=== PATIENT | male | born 1985 | race African-American/Black ===

== ENCOUNTER 2022-05-06 06:39 | Emergency (ER) | payer SELFPAY ==
[2022-05-06 07:42] LABS: Absolute Lymphocytes (CBC) 2.4 K/uL (0.7-4.9); Hematocrit 47.8 % (39.6-49.0); Lymphocytes % 41.6 % (15.3-44.8); MCV 83.8 fL (80-100); MPV 8.1 fL (7.6-11.3)
[2022-05-06] MEDS ORDERED: AMLODIPINE 10 MG TAB ONE (07:44)
[2022-05-06] MEDS ORDERED: NA CHLORIDE 0.9% 1,000 ML ONE (07:45)
[2022-05-06 07:46] LABS: Protime INR 1.05
[2022-05-06 08:05] LABS: Urine Blood 1+ (Negative); Urine Glucose Negative (Negative); Urine Protein Negative (Negative); Urine Specific Gravity >=1.030 (1.005-1.030); Urine pH 5.5 (5.0-7.0)
--- NOTE | 2022-05-06 08:12 | RAD REPORT ---
EXAM DESCRIPTION: RAD - Chest Single View - 05/06/2022 7:30 am CLINICAL HISTORY: COUGH COMPARISON: None TECHNIQUE: AP portable chest image was obtained 05/06/2022 7:30 am . FINDINGS: Lungs are clear. Heart and vasculature are normal. No measurable pleural effusion and no p neumothorax. No acute bony abnormality seen. No acute aortic findings suspected. IMPRESSION: No acute cardiopulmonary process.
--- NOTE | 2022-05-06 08:14 | RAD REPORT ---
EXAM DESCRIPTION: CT - Head Brain Wo Cont - 05/06/2022 7:23 am CLINICAL HISTORY: Headache, new or worsening, positional COMPARISON: No comparisons TECHNIQUE: Axial 5 mm thick images of the head were obtained without IV contrast. All CT scans are performed using dose optimization technique as appropriate and may include automated exposure control or mA/KV adjustment according to patient size. FINDINGS: No intracranial hemorrhage, mass, edema or shift of mid-line structures. No acute infarcti on changes seen. No abnormal extra-axial fluid collections. No ventriculomegaly or suspicious ventric ular finding. Physiologic calcifications are present. Mastoid air cells and visualized portions of the paranasal sinuses are clear. No acute bony findings. IMPRESSION: Negative non-contrast CT head examination.
[2022-05-06 08:20] LABS: Albumin 3.9 g/dL (3.4-5.0); Bilirubin Direct 0.1 mg/dL (0-0.2); Bilirubin Total 0.5 mg/dL (0.2-1.0); Magnesium 2.1 mg/dL (1.6-2.4); Potassium 4.1 mmol/L (3.5-5.1); Protein, Total 7.8 g/dL (6.4-8.2); Troponin High Sensitivity 29.1 pg/mL (<58.9)
[2022-05-06 08:53] LABS: Barbiturates NEGATIVE (NEGATIVE); Benzodiazepines NEGATIVE (NEGATIVE); Cocaine NEGATIVE (NEGATIVE); METHAMPHETAM NEGATIVE (NEGATIVE); Methadone NEGATIVE (NEGATIVE); Opiates NEGATIVE (NEGATIVE); Phencyclidine NEGATIVE (NEGATIVE); THC Cannibis NEGATIVE (NEGATIVE)
--- NOTE | 2022-05-06 09:05 | ER ---
Nurse's Notes [facility] Name: Mesfin Ibrahim Age: 36 yrs Sex: Male : 1985 Arrival Date: 05/06/2022 Time: 06:52 Bed 7 Private MD: Diagnosis: Essential (primary) hypertension;Headache Presentation: 05/06 07:02 Chief complaint: Patient states: "I have had a headache for a few weeks and this vc1 morning my blood pressure was 139/93 at 0600". Coronavirus screen: Vaccine status: Patient reports receiving the 2nd dose of the covid vaccine. Pfizer At this time, the client does not indicate any symptoms associated with coronavirus-19. Ebola Screen: No symptoms or risks identified at this time. Initial Sepsis Screen: Does the patient meet any 2 criteria? No. Patient's initial sepsis screen is negative. Does the patient have a suspected source of infection? No. Patient's initial sepsis screen is negative. Risk Assessment: Do you want to hurt yourself or someone else? Patient reports no desire to harm self or others. Onset of symptoms was May 06, 2022. 07:02 Method Of Arrival: Ambulatory vc1 07:02 Acuity: [place] 3 vc1 Triage Assessment: 08:11 Headache History: Denies prior headaches. General: Appears in no apparent distress. db comfortable, Behavior is calm, cooperative, appropriate for age. Pain: Complains of pain in right frontal area Pain currently is 9 out of 10 on a pain scale. Pain began gradually, couple of weeks Also complains of no other associated symptoms. Historical: - Allergies: 07:04 No Known Allergies; vc1 - Home Meds: 07:04 None [Active]; vc1 - PMHx: 07:04 Hypertensive disorder; Kidney stone; vc1 - PSHx: 07:04 Hernia repair; vc1 - Immunization history:: Client reports receiving the 2nd dose of the Covid vaccine. - Social history:: Smoking status: Patient denies any tobacco usage or history of. - Family history:: not pertinent. Screenin:05 Abuse screen: Denies threats or abuse. Nutritional screening: No deficits noted. vc1 Tuberculosis screening: No symptoms or risk factors identified. 07:20 [facility] ED Fall Risk Assessment (Adult) History of falling in the last 3 months, db including since admission No falls in past 3 months (0 pts) Confusion or Disorientation No (0 pts) Intoxicated or Sedated No (0 pts) Impaired Gait No (0 pts) Mobility Assist Device Used No (0 pt) Altered Elimination No (0 pt) Score/Fall Risk Level 0 - 2 = Low Risk Oriented to surroundings, Maintained a safe environment. Assessment: 07:20 Reassessment: Patient appears in no apparent distress at this time. Patient and/or db family updated on plan of care and expected duration. Pain level reassessed. Patient is alert, oriented x 3, equal unlabored respirations, skin warm/dry/pink. headache and undiagnosed high blood pressure. General: Appears in no apparent distress. comfortable, Behavior is calm, cooperative, appropriate for age. Pain: Complains of pain in head. Neuro: No deficits noted. Level of Consciousness is awake, alert, obeys commands, Oriented to person, place, time, situation. Cardiovascular: No deficits noted. Respiratory: No deficits noted. Airway is patent Respiratory effort is even, unlabored, Respiratory pattern is regular, symmetrical. GI: No deficits noted. No signs and/or symptoms were reported involving the gastrointestinal system. : No deficits noted. No signs and/or symptoms were reported regarding the genitourinary system. EENT: No deficits noted. No signs and/or symptoms were reported regarding the EENT system. Derm: No deficits noted. No signs and/or symptoms reported regarding the dermatologic system. 08:30 Reassessment: Patient appears in no apparent distress at this time. No changes from db previously documented assessment. Patient and/or family updated on plan of care and expected duration. Pain level reassessed. Patient is alert, oriented x 3, equal unlabored respirations, skin warm/dry/pink. 09:21 Reassessment: Patient appears in no apparent distress at this time. Patient and/or db family updated on plan of care and expected duration. Pain level reassessed. Patient is alert, oriented x 3, equal unlabored respirations, skin warm/dry/pink. Patient states feeling better. Patient states symptoms have improved. Pain: Complains of pain in head Pain currently is 6 out of 10 on a pain scale. Vital Signs: 07:02 BP 130 / 89; Pulse 83; Resp 18; Temp 98.6; Pulse Ox 99% ; Weight 99.79 kg; Height 6 ft. vc1 0 in. (182.88 cm); Pain 9/10; 07:45 BP 126 / 91; Pulse 75; Resp 18; Pulse Ox 97% on R/A; Pain 9/10; db 08:15 BP 121 / 84; Pulse 63; Resp 16; Pulse Ox 96% on R/A; db 09:15 BP 121 / 87; Pulse 71; Resp 16; Pulse Ox 98% ; Pain 6/10; db 09:45 BP 117 / 85; Pulse 74; Resp 16; Pulse Ox 97% on R/A; db 07:02 Body Mass Index 29.84 (99.79 kg, 182.88 cm) vc1 Vitals: 07:45 Cardiac Rhythm Assessment Regular Sinus rhythm. db [place] Coma Score: 07:36 Eye Response: spontaneous(4). Verbal Response: oriented(5). Motor Response: obeys pooja commands(6). Total: 15. ED Course: 06:52 Patient arrived in ED. ja2 07:04 Triage completed. vc1 07:04 Joe Pradhan MD is Attending Physician. pooja 07:12 Kathrin Mesa, FOREIGN is Primary Nurse. db 07:[address] db 07:20 Patient has correct armband on for positive identification. Bed in low position. Call db light in reach. Side rails up X 1. Client placed on continuous cardiac and pulse oximetry monitoring. NIBP monitoring applied. 07:20 No provider procedures requiring assistance completed. db 07:23 CT Head Brain wo Cont In Process Unspecified. EDMS 07:32 XRAY Chest (1 view) In Process Unspecified. EDMS 07:35 Inserted saline lock: 20 gauge in left antecubital area, using aseptic technique. Blood db collected. 09:04 Kendell Shipley MD is Referral Physician. pooja 09:52 IV discontinued, intact, bleeding controlled, No redness/swelling at site. db 09:53 Patient placed in an exam room. db Administered Medications: 07:45 Drug: NS 0.9% 1000 ml Route: IV; Rate: 125 ml/hr; Site: right antecubital; db 09:54 Follow up: Response: No adverse reaction; IV Status: Completed infusion; IV Intake: db 800ml 07:45 Drug: Norvasc (amlodipine) 10 mg Route: PO; db 08:08 Follow up: Response: No adverse reaction db 09:20 Drug: Ketorolac 30 mg Route: IVP; Site: right antecubital; db 09:53 Follow up: Response: No adverse reaction db 09:20 Drug: Zofran (Ondansetron) 4 mg Route: IVP; Site: right antecubital; db 09:53 Follow up: Response: No adverse reaction db Medication: 07:05 VIS not applicable for this client. vc1 Intake: 09:54 IV: 800ml; Total: 800ml. db Outcome: 09:04 Discharge ordered by MD. patton 09:50 Discharged to home ambulatory. db 09:50 Condition: stable 09:50 Discharge instructions given to patient, Instructed on discharge instructions, Demonstrated understanding of instructions, Prescriptions given X 1. 09:54 Patient left the ED. db Signatures: Dispatcher [employer] EDMS Joe Pradhan MD MD cha Alexander, Serena Parikh, RN RN vc1 Kathrin Mesa RN RN db Corrections: (The following items were deleted from the chart) 07:25 07:20 Reassessment: Patient appears in no apparent distress at this time. Patient db and/or family updated on plan of care and expected duration. Pain level reassessed. Patient is alert, oriented x 3, equal unlabored respirations, skin warm/dry/pink. db
--- NOTE | 2022-05-06 09:05 | EDPHYS ---
Physician Documentation [facility] Name: Mesfin Ibrahim Age: 36 yrs Sex: Male : 1985 Arrival Date: 05/06/2022 Time: 06:52 Bed 7 Private MD: NITIN Physician Joe Pradhan HPI: 05/06 07:33 This 36 yrs old Black Male presents to ER via Ambulatory with complaints of Headache, pooja High Blood Pressure. 07:33 The patient complains of pain to the forehead, left frontal area, left side of the back pooja of head, right frontal area and right side of the back of head. The patient describes the headache as aching. Onset: The symptoms/episode began/occurred 14 day(s) ago. Associated signs and symptoms: The patient has no apparent associated signs or symptoms. Severity of symptoms: At its worst the pain was mild, in the emergency department the pain is unchanged. Headache History: The patient has had previous headaches and this one is similar to previous episodes. The symptoms are alleviated by. The patient has experienced similar episodes in the past, several times. Historical: - Allergies: 07:04 No Known Allergies; vc1 - Home Meds: 07:04 None [Active]; vc1 - PMHx: 07:04 Hypertensive disorder; Kidney stone; vc1 - PSHx: 07:04 Hernia repair; vc1 - Immunization history:: Client reports receiving the 2nd dose of the Covid vaccine. - Social history:: Smoking status: Patient denies any tobacco usage or history of. - Family history:: not pertinent. ROS: 07:33 Constitutional: Negative for fever, chills, and weight loss, Eyes: Negative for injury, pooja pain, redness, and discharge, ENT: Negative for injury, pain, and discharge, Neck: Negative for injury, pain, and swelling, Cardiovascular: Negative for chest pain, palpitations, and edema, Respiratory: Negative for shortness of breath, cough, wheezing, and pleuritic chest pain, Abdomen/GI: Negative for abdominal pain, nausea, vomiting, diarrhea, and constipation, Back: Negative for injury and pain, : Negative for injury, bleeding, discharge, and swelling, MS/Extremity: Negative for injury and deformity, Skin: Negative for injury, rash, and discoloration, Psych: Negative for depression, anxiety, suicide ideation, homicidal ideation, and hallucinations, Allergy/Immunology: Negative for hives, rash, and allergies, Endocrine: Negative for neck swelling, polydipsia, polyuria, polyphagia, and marked weight changes, Hematologic/Lymphatic: Negative for swollen nodes, abnormal bleeding, and unusual bruising. 07:33 Neuro: Positive for headache. Exam: 07:33 Constitutional: This is a well developed, well nourished patient who is awake, alert, pooja and in no acute distress. Head/Face: Normocephalic, atraumatic. Eyes: Pupils equal round and reactive to light, extra-ocular motions intact. Lids and lashes normal. Conjunctiva and sclera are non-icteric and not injected. Cornea within normal limits. Periorbital areas with no swelling, redness, or edema. ENT: Nares patent. No nasal discharge, no septal abnormalities noted. Tympanic membranes are normal and external auditory canals are clear. Oropharynx with no redness, swelling, or masses, exudates, or evidence of obstruction, uvula midline. Mucous membranes moist. Neck: Trachea midline, no thyromegaly or masses palpated, and no cervical lymphadenopathy. Supple, full range of motion without nuchal rigidity, or vertebral point tenderness. No Meningismus. Chest/axilla: Normal chest wall appearance and motion. Nontender with no deformity. No lesions are appreciated. Cardiovascular: Regular rate and rhythm with a normal S1 and S2. No gallops, murmurs, or rubs. Normal PMI, no JVD. No pulse deficits. Respiratory: Lungs have equal breath sounds bilaterally, clear to auscultation and percussion. No rales, rhonchi or wheezes noted. No increased work of breathing, no retractions or nasal flaring. Abdomen/GI: Soft, non-tender, with normal bowel sounds. No distension or tympany. No guarding or rebound. No evidence of tenderness throughout. Back: No spinal tenderness. No costovertebral tenderness. Full range of motion. Male : Normal genitalia with no discharge or lesions. Skin: Warm, dry with normal turgor. Normal color with no rashes, no lesions, and no evidence of cellulitis. MS/ Extremity: Pulses equal, no cyanosis. Neurovascular intact. Full, normal range of motion. Neuro: Awake and alert, GCS 15, oriented to person, place, time, and situation. Cranial nerves II-XII grossly intact. Motor strength 5/5 in all extremities. Sensory grossly intact. Cerebellar exam normal. Normal gait. Psych: Awake, alert, with orientation to person, place and time. Behavior, mood, and affect are within normal limits. 07:33 ECG was reviewed by the Attending Physician. 09:14 Neck: External neck: is normal, no acute changes, C-spine: appears grossly normal, no pooja acute changes, Thyroid: appears normal, no acute changes, Trachea: is midline with no obvious abnormalities, no acute changes, ROM/movement: is normal, no acute changes, limited range of motion, is not appreciated, Meningeal signs: are not present, Kernig's sign is negative, Brudzinski's sign is negative, nuchal rigidity, is not appreciated, Lymph nodes: no appreciated lymphadenopathy. Vital Signs: 07:02 BP 130 / 89; Pulse 83; Resp 18; Temp 98.6; Pulse Ox 99% ; Weight 99.79 kg; Height 6 ft. vc1 0 in. (182.88 cm); Pain 9/10; 07:45 BP 126 / 91; Pulse 75; Resp 18; Pulse Ox 97% on R/A; Pain 9/10; db 08:15 BP 121 / 84; Pulse 63; Resp 16; Pulse Ox 96% on R/A; db 09:15 BP 121 / 87; Pulse 71; Resp 16; Pulse Ox 98% ; Pain 6/10; db 09:45 BP 117 / 85; Pulse 74; Resp 16; Pulse Ox 97% on R/A; db 07:02 Body Mass Index 29.84 (99.79 kg, 182.88 cm) vc1 [place] Coma Score: 07:36 Eye Response: spontaneous(4). Verbal Response: oriented(5). Motor Response: obeys pooja commands(6). Total: 15. MDM: 07:04 Patient medically screened. pooja 07:36 Differential diagnosis: hypertensive headache, hyponatremia, migraine, sinusitis, pooja tension headache. Data reviewed: vital signs, nurses notes, lab test result(s). Data interpreted: manager online: rate is 83 beats/min, rhythm is regular, Pulse oximetry: on room air is 99 %. Test interpretation: by ED physician or midlevel provider: ECG, plain radiologic studies. Counseling: I had a detailed discussion with the patient and/or guardian regarding: the historical points, exam findings, and any diagnostic results supporting the discharge/admit diagnosis, lab results, radiology results, the need for outpatient follow up. 07:47 ED course: no old med records, possible need cardio, neuro. pooja 05/06 07:11 Order name: Basic Metabolic Panel; Complete Time: 08:28 pooja 05/06 07:11 Order name: CBC with Diff; Complete Time: 08:28 pooja 05/06 07:11 Order name: LFT's; Complete Time: 08:28 pooja 05/06 07:11 Order name: Magnesium; Complete Time: 08:28 pooja 05/06 07:11 Order name: NT PRO-BNP; Complete Time: 08:28 pooja 05/06 07:11 Order name: PT-INR; Complete Time: 08:28 pooja 05/06 07:11 Order name: Troponin HS; Complete Time: 08:28 pooja 05/06 07:11 Order name: XRAY Chest (1 view); Complete Time: 08:28 pooja 05/06 07:11 Order name: Acetaminophen; Complete Time: 08:28 pooja 05/06 07:11 Order name: ETOH Level; Complete Time: 08:28 pooja 05/06 07:11 Order name: Ptt, Activated; Complete Time: 08:28 pooja 05/06 07:11 Order name: Salicylate; Complete Time: 08:28 pooja 05/06 07:11 Order name: Urine Drug Screen; Complete Time: 09:04 pooja 05/06 08:05 Order name: Urine Dipstick-Ancillary; Complete Time: 08:28 EDME 05/06 07:11 Order name: EKG; Complete Time: 07:12 pooja 05/06 07:11 Order name: Cardiac monitoring; Complete Time: 07:50 pooja 05/06 07:11 Order name: EKG - Nurse/Tech; Complete Time: 07:50 pooja 05/06 07:11 Order name: IV Saline Lock; Complete Time: 07:50 pooja 05/06 07:11 Order name: Labs collected and sent; Complete Time: 07:50 pooja 05/06 07:11 Order name: O2 Per Protocol; Complete Time: 07:50 pooja 05/06 07:11 Order name: O2 Sat Monitoring; Complete Time: 07:50 pooja 05/06 07:11 Order name: CT Head Brain wo Cont; Complete Time: 08:28 pooja 05/06 07:11 Order name: Urine Dipstick-Ancillary (obtain specimen); Complete Time: 08:10 pooja EC:33 Rate is 72 beats/min. Rhythm is regular. QRS [place] is Normal. QRS interval is normal. QT pooja interval is normal. No Q waves. T waves are Normal. No ST changes noted. Clinical impression: Normal ECG and No evidence of ischemia. Interpreted by me. Reviewed by me. Administered Medications: 07:45 Drug: NS 0.9% 1000 ml Route: IV; Rate: 125 ml/hr; Site: right antecubital; db 09:54 Follow up: Response: No adverse reaction; IV Status: Completed infusion; IV Intake: db 800ml 07:45 Drug: Norvasc (amlodipine) 10 mg Route: PO; db 08:08 Follow up: Response: No adverse reaction db 09:20 Drug: Ketorolac 30 mg Route: IVP; Site: right antecubital; db 09:53 Follow up: Response: No adverse reaction db 09:20 Drug: Zofran (Ondansetron) 4 mg Route: IVP; Site: right antecubital; db 09:53 Follow up: Response: No adverse reaction db Disposition Summary: 05/06/22 09:04 Discharge Ordered Location: Home pooja Problem: new pooja Symptoms: have improved pooja Condition: Stable pooja Diagnosis - Essential (primary) hypertension pooja - Headache pooja Followup: pooja - With: Private Physician - When: 2 - 3 days - Reason: Recheck today's complaints, Continuance of care, Re-evaluation by your physician Followup: pooja - With: - When: 2 - 3 days - Reason: Recheck today's complaints, Continuance of care, Re-evaluation by your physician Discharge Instructions: - Discharge Summary Sheet pooja - General Headache Without Cause pooja - Hypertension, Adult pooja - Hypertension, Adult, Ilhl-[id number] pooja - How to Take Your Blood Pressure, Ruzd-[id number] pooja - General Headache Without Cause, Dijy-pa-Lmov pooja - Managing Your Hypertension pooja Forms: - Medication Reconciliation Form pooja - Thank You Letter pooja - Antibiotic Education pooja - Prescription Opioid Use pooja - Work release form db Prescriptions: - Norvasc 5 mg Oral Tablet - take 1 tablet by ORAL route once daily; 20 tablet; Refills: 0, Product pooja Selection Permitted Signatures: Dispatcher [employer] Joe Tate MD MD cha Calcote, Vanessa RN RN vc1 Kathrin Mesa RN RN db Corrections: (The following items were deleted from the chart) :25 07:11 Suicide Screening ([place]) ordered. pooja em1
[2022-05-06] MEDS ORDERED: KETOROLAC 30 MG/ML INJ ONE (09:15)
[2022-05-06] MEDS ORDERED: ONDANSETRON 4 MG/2 ML VIAL ONE (09:15)
[2022-05-06 10:00] VITALS: TEMP 98.6
[2022-05-06 10:05] VITALS: BP 117/85; O2SAT 97
--- NOTE | 2022-05-07 14:26 | EKG ---
Test Date: 2022-05-06 Test Time: 07:29:44 [employer] Helper: LML MEASUREMENT RESULTS: Intervals: Rate: 72 AK: 146 QRSD: 94 QT: 416 QTc: 455 [place]: P: 67 AK: 146 QRS: 184 T: 123 INTERPRETIVE STATEMENTS: Normal sinus rhythm with sinus arrhythmia Right superior axis deviation ST & T wave abnormality, consider lateral ischemia Abnormal ECG No previous ECG available for comparison Electronically Signed On 05-07-22 14:22:59 FOUNTAIN HELPER by Constantino Tadeo
== END 2022-05-06 09:54 | disposition home or self-care (01) ==
LOC: ER 06:39
DX: R51.9 Headache, unspecified (principal); I10 Essential (primary) hypertension
CPT/HCPCS: 36415; 70450; 71045; 80048; 80076; 80307; 80320; 80329; 81003; 83735; 83880; 84484; 85025; 85610; 85730; 93005; 96361; 96374; 96375; 99284; J2405; J7030

== ENCOUNTER 2022-08-24 21:00 | Emergency (ER) | payer SELFPAY ==
--- OUTSIDE RECORDS SUMMARY | 2022-08-24 21:03 | XMS REPORT | Continuity of Care Document ---
:1985 Author Organization [facility] t Address [address] [place] [address] [address] [place] [address] Care Team Providers Name Role Phone Mervat Borges Primary Care Physician PHILIP Attending Clinician Unavailable MONTRELL GORMAN Attending Clinician Unavailable Montrell Jennings Attending Clinician SERENITY_SHENG_YAW Attending Clinician Unavailable PHILIP Admitting Clinician Unavailable SERENITY_SHENG_YAW Admitting Clinician Unavailable Payers Payer Name Policy Type Policy Number Effective Date Expiration Date [facility] [id number] Problems Condition Condition Condition Status Onset Resolution Last Treating Co mments Source Name Details Category Date Date Treatment Clinician Date Prediabete Prediabete Problem Active 0 [facility] [place] [facility] s 1-13 da 00:[facility]: [facility] No known No known Disease Unive rs active active ity of problems problems [facility] Allergies, Adverse Reactions, Alerts Allergy Allergy Status Severity Reaction(s) Onset Inactive Treating Comm ents Source Name Type Date Date Clinician NO KNOWN Drug Active Univers ALLERGIE Class ity of [facility] Social History Social Habit Start Date Stop Date Quantity Comments Source Exposure to 2022-05-02 2022-05-12 Not sure [facility] SARS-CoV-2 (event) 00:00:00 13:42:00 Medica l Branch Sex Ass[birth year] [facility] 00:00:00 00:00:00 Medical Branch Smoking Status Start Date Stop Date Source Tobacco smoking consumption [facility] Never Smoker [facility] Medications Ordered Filled Start Stop Current Ordering Indication Dosage Frequency Signature Comments Components Source Medication Medication Date Date Medication? Clinician (SIG) Name Name No known No No known Unive rs medications 1-15 medication it y of 14:03: s [address] Cipro 500 Cipro 500 No 1 Q12H Cipro 500 [place] mg tablet mg tablet mg tablet da Take 1 Take 1 Take 1 [facility] tablet tablet tablet al every 12 every 12 every 12 Hea lth hours by hours by hours by Out reac oral route. oral route. oral h route. Program Immunizations Ordered Immunization Filled Immunization Date Status Commen ts Source Name Name influenza, influenza, 2021-05-10 Completed [facility] injectable, injectable, 11:55:19 [facility] quadrivalent, quadrivalent, Outreach Program preservative free preservative free Tdap Tdap 2021-05-10 Completed [facility] 11:54:37 [facility] am Vital Signs Vital Name Observation Time Observation Value Comments Source Heart rate 2022-05-12 19:43:00 94 /min [facility] Body temperature 2022-05-12 19:43:00 36.89 Renee [facility] Respiratory rate 2022-05-12 19:43:00 18 /min [facility] Body height 2022-05-12 19:43:00 182.9 cm [facility] Body weight 2022-05-12 19:43:00 90.719 kg [facility] BMI 2022-05-12 19:43:00 27.12 kg/m2 [facility] Oxygen saturation in 2022-05-12 19:43:00 100 /min [facility] Arterial blood by [facility] Pulse oximetry Branch Systolic blood 2022-05-12 19:43:00 124 mm[Hg] Univer sity of pressure [facility] Diastolic blood 2022-05-12 19:43:00 81 mm[Hg] Unive rschacha of pressure [facility] BP Diastolic 2021-09-08 00:00:00 82 mm[Hg] [place] [facility] Height 2021-09-08 00:00:00 73 [in_i] [place] [facility] BMI (Body Mass 2021-09-08 00:00:00 26.7 kg/m2 [place]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) [facility] BP Systolic 2021-09-08 00:00:00 121 mm[Hg] [place] [facility] Body Weight 2021-09-08 00:00:00 3232 [oz_av] [place] [facility] BP Diastolic 2021-05-10 00:00:00 80 mm[Hg] [place] [facility] Height 2021-05-10 00:00:00 73 [in_i] [place] [facility] BMI (Body Mass 2021-05-10 00:00:00 26.3 kg/m2 [place]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) [facility] BP Systolic 2021-05-10 00:00:00 125 mm[Hg] [place] [facility] Body Weight 2021-05-10 00:00:00 3184 [oz_av] [place] [facility] Height 2020-02-15 00:00:00 73 [in_i] [place] [facility] BMI (Body Mass 2020-02-15 00:00:00 25.9 kg/m2 [place]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) [facility] Body Weight 2020-02-15 00:00:00 3136 [oz_av] [place] [facility] Procedures Procedure Date / Time Performed Performing Clinician [facility] e NOTICE OF PRIVACY 2022-05-12 19:37:59 Doctor Unassigned, No Univ [facility] Name Medical Branch CT, abdomen + pelvis, 2021-05-10 00:00:00 [place] [employer] [facility] w/o contrast Health Outreach Program Hernia Repair [facility] Plan of Care Planned Activity Planned Date Details Comments Source Diagnostic Test 2021-09-08 urinalysis, [facility] Pending 00:00:00 dipstick [code = Health Outr each urinalysis, Program dipstick] Encounters Start End Encounter Admission Attending Care Care Encounter Source Date/Time Date/Time Type Type Clinicians Facility Department ID 2022-07-10 2022-07-10 Outpatient VERNAAlbertMERVAT [facility] 105 [place] 00:00:00 00:00:00 _ANN [id number] [facility] 2022-05-12 2022-05-12 Emergency X SHERIF, [facility] ERT [id number] Univers 13:45:00 14:38:00 MONTRELL ity of [facility] 2022-05-12 2022-05-12 Emergency Sherif, [facility] [id number] Univers 13:45:00 14:38:00 Montrell CHUN [id number] i ty [facility] [id number] [facility] [id number] [place] [id number] Branch 2021-09-08 2021-09-08 Outpatient GUU_SHENG_Y [facility] 105 [id number]- [place] 03:26:00 03:26:00 [place] [id number] [facility] 2021-09-08 2021-09-08 Michelle [place] - [id number] M [place] 00:00:00 00:00:00 Mira Reid, Religion [facility] MANAGER OF EMPLOYEE RELATIONS: [address] [place] [address] Juancarlos , Ph. 2021-05-10 2021-05-10 Outpatient GUU_SHENG_Y [facility] 105 [id number] [place] 03:33:00 03:33:00 AW [facility] 2021-05-10 2021-05-10 Mervat Chapman [facility] [place] - [id number] [place] 00:00:00 00:00:00 Kody Borges da MANAGER OF EMPLOYEE RELATIONS: [address] [facility] [place] [id number] h , Ph. Program 2020-11-16 2020-11-16 Outpatient GUU_SHENG_Y [facility] 105 - [place] 02:36:00 02:36:00 [place] [id number] [facility] 2020-11-16 2020-11-16 Outpatient GUU_SHENG_Y [facility] 105 [place] 02:36:00 02:36:00 AW da [facility] 2020-02-15 2020-02-15 Outpatient GUU_SHENG_Y [facility] 105 [id number]- [place] 09:51:00 09:51:00 [place] [id number] [facility] 2020-02-15 2020[facility]02-[facility] [place] [id number] [place] 00:00:00 00:00:00 Kody Lazar da MANAGER OF EMPLOYEE RELATIONS: [address] [facility] [address], [facility] [id number] h , Ph. Program 2019-08-16 2019-08-16 Outpatient GUU_SHENG_Y [facility] 105 [place] 10:37:00 10:37:00 AW [id number] [facility] Results Test Description Test Time Test Comments Results Result Comments Source Urinalysis macro (dipstick) panel - Urine 2021-09-08 09:06:0 2 Test Item Value Reference Range Interpretation Comme nts Leukocytes (test code = Leukocytes) negative Nitrite (test code = Nitrite) negative Urobilinogen (test code = Urobilinogen) negative Protein (test code = Protein) positive pH (test code = pH) 6.0 Blood (test code = Blood) 2+ Specific [place] (test code = Specific [place]) 1.030 Ketone (test code = Ketone) negative Bilirubin (test code = Bilirubin) negative Glucose (test code = Glucose) negative Appearance (test code = Appearance) clear Color (test code = Color) light yellow [facility] - [id number] 10:06:45 Test Item Value Reference Range Interpretation Comments Leukocytes (test code = Leukocytes) Neg Nitrite (test code = Nitrite) Neg Urobilinogen (test code = Urobilinogen) Neg Protein (test code = Protein) Neg pH (test code = pH) 6.0 Blood (test code = Blood) Trace Specific [place] (test code = Specific 1.015 [place]) Ketone (test code = Ketone) Neg Bilirubin (test code = Bilirubin) Neg Glucose (test code = Glucose) Neg Appearance (test code = Appearance) clear Color (test code = Color) straw [facility]
[2022-08-24 22:14] LABS: Absolute Lymphocytes (CBC) 3.2 K/uL (0.7-4.9); Lymphocytes % 48.8 % (15.3-44.8); MPV 8.9 fL (7.6-11.3)
[2022-08-24] MEDS ORDERED: ONDANSETRON 4 MG/2 ML VIAL ONE (22:16)
[2022-08-24] MEDS ORDERED: HYDROMORPHONE HCL 1 MG/ML INJ ONE (22:16)
[2022-08-24] MEDS ORDERED: NA CHLORIDE 0.9% 1,000 ML ONE (22:16)
[2022-08-24 22:36] LABS: Specific Gravity 1.023 (1.005-1.030); Urine Bacteria None Seen /HPF (<20); Urine Bilirubin NEGATIVE (Negative); Urine Blood 1+ (Negative); Urine Clarity Clear (Clear); Urine Color Light-Yellow (Yellow); Urine Glucose NEGATIVE (Negative); Urine Protein NEGATIVE (Negative); Urine Urobilinogen 1+ (Normal); Urine pH 5.5 (5.0-7.0)
[2022-08-24 22:37] LABS: Albumin 3.9 g/dL (3.4-5.0); Bilirubin Total 0.5 mg/dL (0.2-1.0); Protein, Total 7.8 g/dL (6.4-8.2)
[2022-08-24 22:38] LABS: Potassium 3.9 mEq/L (3.5-5.1)
--- NOTE | 2022-08-24 22:41 | RAD REPORT ---
EXAM DESCRIPTION: CT - Stone Protocol - 08/24/2022 10:24 pm CLINICAL HISTORY: FLANK PAIN COMPARISON: Head C Spine Cap Wo Con dated 05/10/2022 TECHNIQUE: Thin cut axial CT imaging of the abdomen and pelvis was performed without IV contrast. Mu ltiplanar reformats were generated and reviewed. All CT scans are performed using dose optimization technique as appropriate and may include automated exposure control or mA/KV adjustment according to patient size. FINDINGS: No suspicious findings in the lung bases. 4 millimeter peripheral left lower lobe nodule, axial image 12, likely benign given size. The liver, spleen, and pancreas show no suspicious findings. Gallbladder and biliary tree are also wi thout suspicious finding. Symmetric renal contour, without suspicious parenchymal findings within limits of noncontrast techniq ue. No evidence of radiopaque calculi or hydroureteronephrosis. No dilated bowel loops or bowel wall thickening. No free air, free fluid or inflammatory stranding. N o hernia, mass or bulky lymphadenopathy. The urinary bladder is without significant finding. No suspicious bony findings. IMPRESSION: No acute intra-abdominal process.
--- NOTE | 2022-08-24 23:18 | ER ---
Nurse's Notes [facility] Name: Mesfin Ibrahim Age: 36 yrs Sex: Male : 1985 Arrival Date: 08/24/2022 Time: 21:00 Bed 9 Private MD: Diagnosis: Dorsalgia, unspecified Presentation: 08/24 21:18 Chief complaint: Patient states: left flank pain x 2 days denies diff urinating reports kl history of kidney stones. Coronavirus screen: Vaccine status: Patient reports receiving the 2nd dose of the covid vaccine. Ebola Screen: Patient negative for fever greater than or equal to 101.5 degrees Fahrenheit, and additional compatible Ebola Virus Disease symptoms. Initial Sepsis Screen: Does the patient meet any 2 criteria? No. Patient's initial sepsis screen is negative. Does the patient have a suspected source of infection? No. Patient's initial sepsis screen is negative. Risk Assessment: Do you want to hurt yourself or someone else? Patient reports no desire to harm self or others. 21:18 Method Of Arrival: Ambulatory kl 21:18 Acuity: [place] 3 kl Triage Assessment: 21:20 General: Appears uncomfortable, Behavior is calm, cooperative. Pain: Complains of pain kl in left flank. Historical: - Allergies: 21:19 No Known Allergies; kl - PMHx: 21:19 Hypertensive disorder; Kidney stone; kl - PSHx: 21:19 hernia repair; hernia repair; kl - Immunization history:: Adult Immunizations up to date. - Social history:: Smoking status: Patient denies any tobacco usage or history of. Screenin:50 [facility] ED Fall Risk Assessment (Adult) History of falling in the last 3 months, ll3 including since admission No falls in past 3 months (0 pts) Confusion or Disorientation No (0 pts) Intoxicated or Sedated No (0 pts) Impaired Gait No (0 pts) Mobility Assist Device Used No (0 pt) Altered Elimination No (0 pt) Score/Fall Risk Level 0 - 2 = Low Risk Oriented to surroundings, Maintained a safe environment, Educated pt \T\ family on fall prevention, incl call for assistance when getting out of bed. Abuse screen: Denies threats or abuse. Denies injuries from another. Nutritional screening: No deficits noted. Tuberculosis screening: No symptoms or risk factors identified. Vital Signs: 21:18 BP 118 / 78; Pulse 70; Resp 18; Temp 98.4(O); Pulse Ox 97% on R/A; Weight 95.25 kg (R); kl Height 6 ft. 0 in. ; Pain 10/10; 23:51 BP 123 / 78; Pulse 72; Resp 16; Pulse Ox 99% on R/A; ll3 21:18 Body Mass Index 28.48 (95.25 kg, 182.88 cm) kl 21:18 Pain Scale: Adult ED Course: 21:02 Patient arrived in ED. mr 21:19 Triage completed. kl 21:39 Joe Blankenship PA is PHCP. cp 21:39 Lino Powell MD is Attending Physician. cp 22:25 CT Stone Protocol In Process Unspecified. EDMS 22:55 Inserted saline lock: 22 gauge in left wrist, using aseptic technique. Blood collected. oe 23:50 No provider procedures requiring assistance completed. IV discontinued, intact, ll3 bleeding controlled, No redness/swelling at site. Pressure dressing applied. 23:50 Patient has correct armband on for positive identification. Bed in low position. Call ll3 light in reach. Side rails up X 1. Adult w/ patient. 23:51 Arm band placed on Patient placed in an exam room, on a stretcher, on pulse oximetry. ll3 Administered Medications: 22:16 Drug: NS 0.9% IV 1000 ml Route: IV; Rate: 1000 ml/hr; Site: left wrist; ll3 23:48 Follow up: Response: No adverse reaction; IV Status: Completed infusion; IV Intake: ll3 1000ml 22:16 Drug: HYDROmorphone IVP 1 mg Route: IVP; Site: left wrist; ll3 23:49 Follow up: Response: No adverse reaction; Pain is decreased ll3 22:16 Drug: Ondansetron IVP 4 mg Route: IVP; Site: left wrist; ll3 23:49 Follow up: Response: No adverse reaction ll3 23:47 Drug: Decadron - Dexamethasone IVP 10 mg Route: IVP; Site: right wrist; ll3 23:49 Follow up: Response: Medication administered at discharge. ll3 23:47 Drug: Diazepam IVP 2 mg Route: IVP; Site: right wrist; ll3 23:50 Follow up: Response: Medication administered at discharge. ll3 23:48 Drug: Lidoderm Topical Patch 5 % (700 mg/patch) 1 patches Route: Topical; Site: ll3 affected area; 23:49 Follow up: Response: No adverse reaction ll3 23:48 Drug: Ketorolac IVP 15 mg Route: IVP; Site: right wrist; ll3 23:49 Follow up: Response: Medication administered at discharge. ll3 Medication: 23:51 VIS not applicable for this client. ll3 Intake: 23:48 IV: 1000ml; Total: 1000ml. ll3 Outcome: 23:18 Discharge ordered by MD. cp 23:50 Discharged to home ambulatory, with significant other. ll3 23:50 Condition: stable 23:50 Discharge instructions given to patient, significant other, Instructed on discharge instructions, follow up and referral plans. medication usage, Demonstrated understanding of instructions, follow-up care, medications, Prescriptions given X 4. 23:51 Patient left the ED. ll3 Signatures: Dispatcher [employer] EDMS Rupa Ramirez, RN Mervat Faustin Corey, PA PA cp Espinosa, Orlando oe Loubet, Lynsea, RN RN ll3
--- NOTE | 2022-08-24 23:18 | EDPHYS ---
Physician Documentation [facility] Name: Mesfin Ibrahim Age: 36 yrs Sex: Male : 1985 Arrival Date: 08/24/2022 Time: 21:00 Bed 9 Private MD: ED Physician Lino Powell HPI: 08/24 21:45 This 36 yrs old Black Male presents to ER via Ambulatory with complaints of Low Back cp Pain, Pelvic Pain. 21:45 The patient presents with pain that is acute, with no known mechanism of injury. The cp symptoms are located in the left mid back and left flank. The pain does not radiate. Onset: The symptoms/episode began/occurred yesterday, and became worse today. 21:45 The problem was sustained possible kidney stone. cp 21:45 Associated signs and symptoms: Pertinent positives: nausea, Pertinent negatives: cp abdominal pain, chest pain, constipation, dysuria, fever, incontinence, numbness, vomiting, weakness. Severity of symptoms: in the emergency department the symptoms are unchanged, despite home interventions. The patient has experienced similar episodes in the past, a few times, today's symptoms are similar, to when the patient was apparently diagnosed with kidney stone. Historical: - Allergies: 21:19 No Known Allergies; kl - PMHx: 21:19 Hypertensive disorder; Kidney stone; kl - PSHx: 21:19 hernia repair; hernia repair; kl - Immunization history:: Adult Immunizations up to date. - Social history:: Smoking status: Patient denies any tobacco usage or history of. ROS: 21:50 Constitutional: Negative for body aches, chills, fever, poor PO intake. cp 21:50 Eyes: Negative for injury, pain, redness, and discharge. cp 21:50 ENT: Negative for drainage from ear(s), ear pain, sore throat, difficulty swallowing, difficulty handling secretions. 21:50 Neck: Negative for pain with movement, pain at rest, stiffness. 21:50 Cardiovascular: Negative for chest pain. 21:50 Respiratory: Negative for cough, shortness of breath, wheezing. 21:50 Abdomen/GI: Negative for abdominal pain, vomiting, diarrhea, constipation, anorexia. 21:50 Back: Positive for pain at rest, pain with movement, flank pain, on the left, of the left mid back, Negative for injury or acute deformity. 21:50 MS/extremity: Negative for pain, paresthesias. 21:50 Skin: Negative for rash. 21:50 Neuro: Negative for altered mental status, dizziness, headache, numbness, weakness. 21:50 All other systems are negative. Exam: 21:55 Constitutional: The patient appears in no acute distress, alert, awake, cp non-diaphoretic, non-toxic, well developed, well nourished, uncomfortable. 21:55 Head/Face: Normocephalic, atraumatic. cp 21:55 Eyes: Periorbital structures: appear normal, Conjunctiva: normal, no exudate, no injection, Sclera: no appreciated abnormality, Lids and lashes: appear normal, bilaterally. 21:55 ENT: External ear(s): are unremarkable, Nose: is normal, Mouth: Lips: moist, Oral mucosa: pink and intact, moist, Posterior pharynx: is normal, airway is patent, no erythema, no exudate. 21:55 Neck: ROM/movement: is normal, is supple, without pain, no range of motions limitations. 21:55 Chest/axilla: Inspection: normal. 21:55 Cardiovascular: Rate: normal, Rhythm: regular, Edema: is not appreciated, JVD: is not appreciated. 21:55 Respiratory: the patient does not display signs of respiratory distress, Respirations: normal, no use of accessory muscles, no retractions, labored breathing, is not present, Breath sounds: are clear throughout, no decreased breath sounds, no stridor, no wheezing. 21:55 Abdomen/GI: Inspection: abdomen appears normal, Bowel sounds: active, all quadrants, Palpation: abdomen is soft and non-tender, in all quadrants. 21:55 Back: pain, that is moderate, of the left mid back, ROM is painful, with all movement, Straight leg raises: of both lower extremities does not illicit pain. 21:55 Skin: no rash present. 21:55 Neuro: Orientation: to person, place \T\ time. Mentation: is normal, Motor: moves all fours, strength is normal, Sensation: is normal. Vital Signs: 21:18 BP 118 / 78; Pulse 70; Resp 18; Temp 98.4(O); Pulse Ox 97% on R/A; Weight 95.25 kg (R); kl Height 6 ft. 0 in. ; Pain 10/10; 23:51 BP 123 / 78; Pulse 72; Resp 16; Pulse Ox 99% on R/A; ll3 21:18 Body Mass Index 28.48 (95.25 kg, 182.88 cm) kl 21:18 Pain Scale: Adult kl MDM: 21:40 Patient medically screened. cp 22:00 Differential diagnosis: sciatica, Herniated disc UTI, kidney stone, cholelithiasis, cp cholecystitis, pneumonia. 23:17 Data reviewed: vital signs, nurses notes, lab test result(s), radiologic studies, CT cp scan. 23:17 Consideration of Admission/Observation Escalation of care including cp admission/observation considered. I considered the following discharge prescriptions or medication management in the emergency department Medications were administered in the Emergency Department. See MAR. Care significantly affected by the following chronic conditions: Hypertension. Counseling: I had a detailed discussion with the patient and/or guardian regarding: the historical points, exam findings, and any diagnostic results supporting the discharge/admit diagnosis, lab results, radiology results, the need for outpatient follow up, a family practitioner, to return to the emergency department if symptoms worsen or persist or if there are any questions or concerns that arise at home. Response to treatment: the patient's symptoms have markedly improved after treatment, and as a result, I will discharge patient. 08/24 21:39 Order name: CBC with Diff; Complete Time: 22:42 08/24 22:42 Interpretation: Normal except: CHARU% 33.0; LYM% 48.8; EOSINOPHIL % 9.2; EOSA 0.6. 08/24 21:39 Order name: CMP; Complete Time: 22:42 08/24 22:43 Interpretation: Normal except: CL 109; GLUC 111; CA 8.2; GLOB 3.9; A/G 1.0. 08/24 21:39 Order name: Lipase; Complete Time: 22:42 08/24 21:39 Order name: Urinalysis w/ reflexes; Complete Time: 22:42 08/24 22:43 Interpretation: UBLD 1+; UUROB 1+; URBC 11-20; Reviewed. 08/24 21:57 Order name: CT Stone Protocol; Complete Time: 22:42 08/24 22:44 Interpretation: Report reviewed. 08/24 21:39 Order name: IV Saline Lock; Complete Time: 22:16 cp 08/24 21:39 Order name: Labs collected and sent; Complete Time: 22:03 cp 08/24 23:03 Order name: PO challenge; Complete Time: 23:17 cp Administered Medications: 22:16 Drug: NS 0.9% IV 1000 ml Route: IV; Rate: 1000 ml/hr; Site: left wrist; ll3 23:48 Follow up: Response: No adverse reaction; IV Status: Completed infusion; IV Intake: ll3 1000ml 22:16 Drug: HYDROmorphone IVP 1 mg Route: IVP; Site: left wrist; ll3 23:49 Follow up: Response: No adverse reaction; Pain is decreased ll3 22:16 Drug: Ondansetron IVP 4 mg Route: IVP; Site: left wrist; ll3 23:49 Follow up: Response: No adverse reaction ll3 23:47 Drug: Decadron - Dexamethasone IVP 10 mg Route: IVP; Site: right wrist; ll3 23:49 Follow up: Response: Medication administered at discharge. ll3 23:47 Drug: Diazepam IVP 2 mg Route: IVP; Site: right wrist; ll3 23:50 Follow up: Response: Medication administered at discharge. ll3 23:48 Drug: Lidoderm Topical Patch 5 % (700 mg/patch) 1 patches Route: Topical; Site: ll3 affected area; 23:49 Follow up: Response: No adverse reaction ll3 23:48 Drug: Ketorolac IVP 15 mg Route: IVP; Site: right wrist; ll3 23:49 Follow up: Response: Medication administered at discharge. ll3 Disposition Summary: 08/24/22 23:18 Discharge Ordered Location: Home cp Problem: new cp Symptoms: have improved cp Condition: Stable cp Diagnosis - Dorsalgia, unspecified cp Followup: cp - With: Private Physician - When: 2 - 3 days - Reason: Recheck today's complaints Discharge Instructions: - Discharge Summary Sheet cp - Acute Back Pain, Adult cp - Musculoskeletal Pain cp Forms: - Medication Reconciliation Form cp - Thank You Letter cp - Antibiotic Education cp - Prescription Opioid Use cp Prescriptions: - Lidoderm 5 % Topical adhesive patch, medicated - apply 1 patch by TOPICAL route daily As needed leave on most painful area for cp up to 12 hrs; 10 patch; Refills: 0, Product Selection Permitted - Cyclobenzaprine 10 mg Oral Tablet - take 1 tablet by ORAL route every 8 hours As needed; 20 tablet; Refills: 0, cp Product Selection Permitted - Diclofenac Sodium 75 mg Oral Tablet Sustained Release - take 1 tablet by ORAL route 2 times per day; 30 tablet; Refills: 0, Product cp Selection Permitted - Medrol (Xavi) 4 mg Oral Tablets, Dose Pack - take 1 tablet by ORAL route as directed - follow package instructions; 1 cp packet; Refills: 0, Product Selection Permitted Addendum: 08/26/2022 06:59 Co-signature as Attending Physician, Lino Powell MD I agree with the assessment s p4 and plan of care. I reviewed the patient's care provided by the Advanced Practice Provider and agree with the diagnosis and treatment plan. Signatures: Dispatcher [employer] Rupa Black RN RN Joe Tuttle PA PA cp Loubet, Lynsea, RN RN ll3 Lino Powell MD MD sp4
[2022-08-24] MEDS ORDERED: DIAZEPAM 10 MG/2 ML INJ SYRINGE ONE (23:37)
[2022-08-24] MEDS ORDERED: dexAMETHasone 10 MG/ML VIAL ONE (23:37)
[2022-08-24] MEDS ORDERED: LIDOCAINE 4% PATCH ONE (23:38)
[2022-08-24] MEDS ORDERED: KETOROLAC 30 MG/ML INJ ONE (23:38)
[2022-08-25 00:36] VITALS: TEMP 98.4
[2022-08-25 00:42] VITALS: BP 123/78; O2SAT 99
== END 2022-08-24 23:51 | disposition home or self-care (01) ==
LOC: ER 21:00
DX: M54.9 Dorsalgia, unspecified (principal)
CPT/HCPCS: 36415; 74176; 76377; 80053; 81001; 83690; 85025; 99284; J1100; J1170; J2001; J2405; J3360; J7030